=== PATIENT | male | born 1980 | race African-American/Black ===

== ENCOUNTER 2018-12-22 18:38 | Emergency (ER) | payer MEDICAID ==
[~2018-12-22] VITALS: Ht 188 cm; Wt 78.0 kg
[~2018-12-22 18:38] MED LIST: ACET-2178 PO
[2018-12-22 20:24] VITALS: BP 110/79
[2018-12-22 20:33] LABS: CLARITY URINE CLEAR (CLEAR); COLOR URINE YELLOW (YELLOW); KETONES URINE TRACE (NEGATIVE); LEUKOCYTE ESTERASE URINE NEGATIVE (NEGATIVE); NITRITE URINE NEGATIVE (NEGATIVE); OCCULT BLOOD URINE NEGATIVE (NEGATIVE); PH URINE 5.5 (4.5-8.0); PROTEIN URINE TRACE (NEGATIVE); SPECIFIC GRAVITY URINE 1.024 (1.005-1.030)
== END 2018-12-22 20:55 | disposition left against medical advice (07) ==
LOC: ER 19:58
DX: A64 Unspecified sexually transmitted disease (principal); Z53.21 Procedure and treatment not carried out due to patient leaving prior to being seen by health care provider

== ENCOUNTER 2018-12-28 19:58 | Emergency (ER) | payer MEDICAID ==
[~2018-12-28] VITALS: Ht 167.6 cm; Wt 70.0 kg
[2018-12-28] MEDS ORDERED: VISCOUS LIDOCAINE 2% 15 ML UDC PO STA (23:18)
[2018-12-28] MEDS ORDERED: MAGNESIUM/ALUMINUM HYDROXIDE/SIMETHICONE 30ML UDC PO STA (23:18)
[2018-12-28] MEDS ORDERED: ONDANSETRON 4MG ODT PO STA (23:18)
[2018-12-29 00:04] LABS: CLARITY URINE CLEAR (CLEAR); COLOR URINE YELLOW (YELLOW); KETONES URINE TRACE (NEGATIVE); LEUKOCYTE ESTERASE URINE 1+ (NEGATIVE); NITRITE URINE NEGATIVE (NEGATIVE); OCCULT BLOOD URINE NEGATIVE (NEGATIVE); PROTEIN URINE TRACE (NEGATIVE)
[2018-12-29 00:28] LABS: *AMPHETAMINES SCREEN URINE NEGATIVE (NEGATIVE)
[2018-12-29 00:29] LABS: *BARBITURATES SCREEN URINE NEGATIVE (NEGATIVE); *BENZODIAZEPINES SCREEN URINE NEGATIVE (NEGATIVE); *COCAINE SCREEN URINE NEGATIVE (NEGATIVE); CANNABINOID URINE SCREEN PRESUMTIVE POSITIVE (NEGATIVE); OPIATES URINE SCREEN NEGATIVE (NEGATIVE); PHENCYCLIDINE URINE SCREEN NEGATIVE (NEGATIVE)
[2018-12-29 00:31] LABS: METHADONE URINE SCREEN NEGATIVE (NEGATIVE)
[2018-12-29 01:03] LABS: BASOPHILS % 0.4 % (0.0-2.0); HEMATOCRIT. 38.2 % (42.0-52.0); HEMOGLOBIN. 12.9 g/dL (14.0-18.0); LYMPHOCYTES % 38.9 % (20.0-50.0); MEAN CORPUSCULAR HEMOGLOBIN 29.9 pg (28.0-32.0); MEAN CORPUSCULAR VOLUME 88.3 fL (80.0-94.0); MEAN PLATELET VOLUME 8.2 fl (7.4-10.4); MONOCYTES % 13.5 % (2.0-8.0); NEUTROPHILS % 46.2 % (40.0-76.0); PLATELET 202 x1000/uL (130-400); RED BLOOD CELL COUNT 4.33 mill/uL (4.7-6.1); RED CELL DISTRIBUTION WIDTH 14.9 % (11.6-14.6)
[2018-12-29 01:10] LABS: CHLORIDE 107 mEq/L (98-107)
[2018-12-29 01:13] LABS: ETHANOL BLOOD < 10 mg/dL
[2018-12-29] MEDS ORDERED: AZITHROMYCIN 500 MG TABLET PO ONE (04:15)
[2018-12-29] MEDS ORDERED: CEPHALEXIN 250MG CAPSULE PO ONE (04:15)
[2018-12-29] MEDS ORDERED: KETOROLAC 60MG/2ML VIAL IM ONE (04:15)
[2018-12-29] MEDS ORDERED: CEFTRIAXONE SODIUM 250 MG/VIAL IM ONE (04:15)
[2018-12-29 04:55] VITALS: BP 109/75
== END 2018-12-29 05:02 | disposition home or self-care (01) ==
LOC: ER 20:51
DX: N39.0 Urinary tract infection, site not specified (principal); Z11.3 Encounter for screening for infections with a predominantly sexual mode of transmission; F12.10 Cannabis abuse, uncomplicated; F17.200 Nicotine dependence, unspecified, uncomplicated; Z98.890 Other specified postprocedural states
CPT/HCPCS: 36415; 80053; 80305; 80320; 81003; 83690; 85025; 96372; 99284; J0696; J1885; Q0162; Z7610; G0480

== ENCOUNTER 2019-01-07 19:22 | Emergency (ER) | payer MEDICAID ==
[~2019-01-07] VITALS: Ht 188 cm; Wt 81.0 kg
[2019-01-07] MEDS ORDERED: MORPHINE SULFATE 4 MG/ML CPJ (NOT FOR IM USE) IV STA (20:58)
[2019-01-07] MEDS ORDERED: SODIUM CHLORIDE 0.9% 1,000 ML IV ONE (20:58)
[2019-01-07] MEDS ORDERED: ONDANSETRON HCL 4MG/2ML INJ IV STA (20:58)
[2019-01-07] MEDS ORDERED: MAGNESIUM/ALUMINUM HYDROXIDE/SIMETHICONE 30ML UDC PO ONE (21:00)
[2019-01-07] MEDS ORDERED: LORAZEPAM 2MG/ML CPJ IV ONE (21:00)
[2019-01-07] MEDS ORDERED: FAMOTIDINE 20MG/2ML VIAL IV ONE (21:00)
[2019-01-07 21:15] LABS: BASOPHILS % 0.3 % (0.0-2.0); HEMATOCRIT. 42.1 % (42.0-52.0); HEMOGLOBIN. 14.6 g/dL (14.0-18.0); LYMPHOCYTES % 11.3 % (20.0-50.0); MEAN CORPUSCULAR HEMOGLOBIN 30.3 pg (28.0-32.0); MEAN CORPUSCULAR VOLUME 87.2 fL (80.0-94.0); MEAN PLATELET VOLUME 7.9 fl (7.4-10.4); MONOCYTES % 11.4 % (2.0-8.0); PLATELET 269 x1000/uL (130-400); RED BLOOD CELL COUNT 4.83 mill/uL (4.7-6.1); RED CELL DISTRIBUTION WIDTH 14.7 % (11.6-14.6)
[2019-01-07 21:20] LABS: CHLORIDE 106 mEq/L (98-107)
[2019-01-07 21:24] LABS: ETHANOL BLOOD < 10 mg/dL
[2019-01-07] MEDS ORDERED: KETOROLAC 30MG/ML VIAL IV ONE (22:45)
[2019-01-07] MEDS ORDERED: KETOROLAC 15MG/ML VIAL IV NR (23:15)
[2019-01-07 23:30] VITALS: BP 103/68
== END 2019-01-08 01:08 | disposition home or self-care (01) ==
LOC: ER 19:22
DX: K29.70 Gastritis, unspecified, without bleeding (principal); R51 Headache; F12.10 Cannabis abuse, uncomplicated; Z88.6 Allergy status to analgesic agent; Z86.19 Personal history of other infectious and parasitic diseases
CPT/HCPCS: 36415; 70450; 71045; 74018; 80053; 80320; 83690; 83880; 84484; 85025; 93005; 96361; 96374; 96375; 99284; J1885; J2060; J2270; J2405; J3490; J7030; G0480

== ENCOUNTER 2019-09-09 15:20 | Emergency (ER) | payer MEDICAID ==
[~2019-09-09] VITALS: Ht 188 cm; Wt 88.0 kg
[~2019-09-09 15:20] MED LIST changes: -ACET-2178 PO; +TOPUD PO
[2019-09-09] MEDS ORDERED: IBUPROFEN 800MG TABLET PO ONE (17:45)
[2019-09-09] MEDS ORDERED: TETANUS, DIPHTHERIA, PERTUSSIS VAC/PF 0.5ML (>7YR OLD) IM ONE (17:45)
[2019-09-09 18:17] VITALS: BP 122/78
== END 2019-09-09 18:45 | disposition home or self-care (01) ==
LOC: ER 15:20
DX: L02.214 Cutaneous abscess of groin (principal)
CPT/HCPCS: 90471; 90715; 99283

== ENCOUNTER 2020-02-26 21:23 | Emergency (ER) | payer SELFPAY ==
[~2020-02-26] VITALS: Ht 188 cm; Wt 73.0 kg
[2020-02-26 21:24] VITALS: BP 111/76
[2020-02-26] MEDS ORDERED: ACETAMINOPHEN 325MG TABLET PO ONE (22:00)
[2020-02-26] MEDS ORDERED: IBUPROFEN 800MG TABLET PO ONE (22:00)
== END 2020-02-26 22:50 | disposition home or self-care (01) ==
LOC: ER 21:23
DX: R68.84 Jaw pain (principal); K04.7 Periapical abscess without sinus
CPT/HCPCS: 99283